=== PATIENT | male | born 1955 | race Caucasian/White ===

== ENCOUNTER 2024-02-17 05:53 | Observation (INO) | payer OTHER ==
[2024-02-16 12:41] VITALS: BMI 27.5
[2024-02-17] MEDS ORDERED: Tranexamic Acid 1,000 MG/10 ML VIAL ONE (06:09)
[2024-02-17] MEDS ORDERED: Sodium Chloride 0.9% 100 ML ONE (06:09)
[2024-02-17] MEDS ORDERED: Vancomycin 1 GM/200 ML (FROZEN) BAG ONE (06:09)
[2024-02-17] MEDS ORDERED: Fentanyl 250 MCG/5 ML VIAL ONE (06:38)
[2024-02-17] MEDS ORDERED: PROPOFOL 20 ML ONE (06:39)
[2024-02-17] MEDS ORDERED: Midazolam HCl 2 mg/2 ml Vial ONE ×2 (06:39→06:43)
[2024-02-17] MEDS ORDERED: Rocuronium Bromide 10 MG/ML (10ML VIAL) ONE (06:41)
[2024-02-17] MEDS ORDERED: EPINEPHrine 1 MG/ML VIAL ONE (06:43)
[2024-02-17] MEDS ORDERED: fentaNYL 50 mcg/mL 1 mL Vial ONE (06:43)
[2024-02-17] MEDS ORDERED: Bupivacaine PF 0.5% 30 ML VIAL ONE (06:43)
[2024-02-17] MEDS ORDERED: CEFAZOLIN 2 GM VIAL ONE (06:59)
[2024-02-17] MEDS ORDERED: PHENYLEPHRINE-NS 100 MCG/ML 10 ML SYRINGE ONE (07:48)
[2024-02-17] MEDS ORDERED: Vancomycin HCl 500 MG VIAL ONE (09:50)
[2024-02-17] MEDS ORDERED: SUGAMMADEX SODIUM 200 MG/2 ML VIAL ONE (09:52)
[2024-02-17] MEDS ORDERED: Dexamethasone 4 mg/ml Vial ONE (09:52)
[2024-02-17] MEDS ORDERED: Ondansetron PF 4 MG/2 ML Vial ONE (09:52)
[2024-02-17] MEDS ORDERED: fentaNYL PF 100 MCG/2 ML SYRINGE ONE (10:40)
[2024-02-17] MEDS ORDERED: HYDROmorphone 0.5 MG/0.5 ML SYRINGE ONE (11:10)
[2024-02-17] MEDS ORDERED: Promethazine HCl 25 MG/ML VIAL IM PRN (12:29)
[2024-02-17] MEDS ORDERED: Ondansetron PF 4 MG/2 ML Vial IVP PRN (12:29)
[2024-02-17] MEDS ORDERED: Zolpidem Tartrate 5 MG TAB PO PRN (12:29)
[2024-02-17] MEDS ORDERED: Morphine 4 MG/ML VIAL SLOW IVP PRN (12:29)
[2024-02-17] MEDS ORDERED: traMADol HCl 50 MG TAB PO PRN (12:29)
[2024-02-17] MEDS ORDERED: diphenhydrAMINE 25 MG CAP PO PRN (12:29)
[2024-02-17] MEDS: Acetaminophen 500 MG TAB PO SCH (14:43)
[2024-02-17] MEDS: CEFAZOLIN 2 GM in Sodium Chloride 0.9% 100 ML IVPB SCH (14:44)
[2024-02-17] MEDS: oxyCODONE 5 MG TAB PO PRN (18:29)
[2024-02-17] MEDS: Senokot S 8.6-50 MG TAB PO SCH (19:41)
[2024-02-17] MEDS: Ferrous Gluconate 324 MG TAB PO SCH (19:41)
[2024-02-17] MEDS: Aspirin 81 mg Enteric Coated Tablet PO SCH (19:41)
[2024-02-17] MEDS: Lactated Ringer's 1,000 ML IV SCH (23:43)
[2024-02-18] MEDS: Lactated Ringer's 500 ML IV SCH (00:29)
[2024-02-18 04:55] LABS: Hematocrit 34.9 % (42.0-52.0); Hemoglobin 11.7 g/dL (14.0-18.0); Mean Corpuscular HGB CONC 33.5 g/dL (32.0-36.0); Mean Corpuscular Hemoglobin 29.5 pg (27.0-31.0); Mean Corpuscular Volume 88.1 fL (78.0-98.0); Platelet Count 205 10x3/uL (130-400); RBC Distribution Width 13.2 % (11.5-14.5); Red Blood Cell (RBC) Count 3.96 mill/uL (4.70-6.10)
[2024-02-18 05:10] LABS: Anion Gap 12 mmol/L (10-20); BUN (Urea Nitrogen) 11 mg/dL (8.4-25.7); Calc. Creatinine Clearance 79 mL/min (70-130); Calcium 8.9 mg/dL (7.8-10.44); Carbon Dioxide 22 mmol/L (23-31); Chloride 107 mmol/L (98-107); Estimated GFR 71; Glucose 129 mg/dL (80-115); Potassium 4.2 mmol/L (3.5-5.1); Sodium 137 mmol/L (136-145)
[2024-02-18] MEDS: Multivitamin W/ Minerals 1 TAB PO SCH (08:11)
[2024-02-18 12:30] VITALS: BP 121/68; TEMP 98.5
== END 2024-02-18 14:03 | disposition home health service (06) ==
LOC: SDC 05:53 → SURG A 12:21
PROVIDERS: ADMIT Student in an Organized Health Care Education/Training Program; ATTEND Student in an Organized Health Care Education/Training Program
PROC: 0SR90JZ Replacement of Right Hip Joint with Synthetic Substitute, Open Approach (ICD-10-PCS; principal; 2024-02-17)
PROC: 3E0T3BZ Introduction of Anesthetic Agent into Peripheral Nerves and Plexi, Percutaneous Approach (ICD-10-PCS; 2024-02-17)
DX: M16.11 Unilateral primary osteoarthritis, right hip (principal); E03.9 Hypothyroidism, unspecified; E78.00 Pure hypercholesterolemia, unspecified; N28.9 Disorder of kidney and ureter, unspecified; Z96.652 Presence of left artificial knee joint; Z85.819 Personal history of malignant neoplasm of unspecified site of lip, oral cavity, and pharynx; Z87.891 Personal history of nicotine dependence; Z79.890 Hormone replacement therapy; Z79.1 Long term (current) use of non-steroidal anti-inflammatories (NSAID); Z79.899 Other long term (current) drug therapy
CPT/HCPCS: 27130; 64999; 71045; 72170; 80048; 85027; 86850; 86900; 86901; 97110 ×2; 97116 ×2; 97530; 97535; C1776; J0171; J0665; J1100; J1171; J2250; J2405; J2704; J3010 ×2; J3370 ×2; J7120; 36415